=== PATIENT | male | born 1960 | race Caucasian/White ===

== ENCOUNTER 2023-12-11 13:06 | Emergency (ER) | payer MEDICARE, OTHER ==
[~2023-12-11] VITALS: Ht 177.8 cm; Wt 61.0 kg
[2023-12-11 13:42] VITALS: TEMP 98
[2023-12-11] MEDS ORDERED: DEXTROSE 50%-WATER 25 GM/50 ML SYRINGE IVP ONE (13:59)
[2023-12-11] MEDS: DEXTROSE 5%-0.45% SODIUM CHL 1,000 ML IV ONE (14:40)
[2023-12-11 14:43] LABS: BASOPHILS % (AUTO) 0.4 % (0.0-2.0); HEMOGLOBIN 15.8 g/dL (13.5-17.5); LYMPHOCYTES # (AUTO) 0.8 K/uL (1.0-4.8)
[2023-12-11 14:51] LABS: EOSINOPHILS % (AUTO) 0.4 % (1.0-6.0); HEMATOCRIT 47.5 % (41-53); LYMPHOCYTES % (AUTO) 7.9 % (22.0-44.0); MEAN CORPUSCULAR HGB CONC 33.2 G/dL (31.0-37.0); MEAN CORPUSCULAR VOLUME 105 fL (80-100); MONOCYTES # (AUTO) 0.4 K/uL (0.1-1.0); MONOCYTES % (AUTO) 3.8 % (2.0-9.0); NEUTROPHILS # (AUTO) 8.4 K/uL (1.8-7.7); PLATELET COUNT (AUTO) 164 K/uL (150-450); RED BLOOD CELL COUNT(AUTO) 4.51 MIL/uL (4.50-5.90); RED CELL DISTRIBUTION WIDTH 13.4 % (11.5-14.5); WHITE BLOOD COUNT (AUTO) 9.6 K/uL (4.5-11.0)
[2023-12-11 14:54] LABS: ANION GAP 18 mmol/L (8-16); CARBON DIOXIDE 17 mmol/L (22-29); CHLORIDE 99 mmol/L (98-107); GLOMERULAR FILTR. RATE CALC 48 mL/min (>60); GLUCOSE,RANDOM 204 mg/dL (70-110); POTASSIUM 3.4 mmol/L (3.5-5.1); SODIUM SERUM 134 mmol/L (136-145); UREA NITROGEN, BLOOD 23 mg/dL (7-18)
[2023-12-11 14:56] LABS: NEUTROPHILS % (AUTO) 87.5 % (40.0-70.0)
[2023-12-11 15:01] LABS: ALANINE AMINOTRANSFERASE 71 U/L (12-78); ALBUMIN 4.1 g/dL (3.4-5.0); ALKALINE PHOSPHATASE 109 U/L (46-116); ASPARTATE AMINOTRANSFERASE 46 U/L (15-37); BILIRUBIN,TOTAL 0.6 mg/dL (0.1-1.0); CREATINE KINASE, TOTAL ONLY 70 U/L (39-308); TOTAL PROTEIN, SERUM 7.6 g/dL (6.4-8.2)
[2023-12-11 15:02] LABS: AMMONIA 12 umol/L (11-32); TROPONIN I-HIGH SENSITIVITY 11 ng/L (<76)
[2023-12-11 15:05] LABS: LACTIC ACID 4.2 mmol/L (0.4-2.0)
[2023-12-11 15:16] LABS: RBC MORPHOLOGY COMMENT ABNORMAL RBC MORPH
[2023-12-11] MEDS: PIPERACILLIN/TAZO 3.375 GM/D5W 50 ML IV ONE (15:40)
[2023-12-11] MEDS: SODIUM CHLORIDE 0.9% 1,850 ML IV ONE (15:41)
[2023-12-11 15:50] LABS: APPEARANCE,URINE CLEAR (CLEAR); BILIRUBIN,URINE NEGATIVE (NEGATIVE); COLOR,URINE LIGHT YELLOW (YELLOW); GLUCOSE, URINE (UA) 70-100 mg/dL (NEGATIVE); LEUKOCYTE ESTERASE ,URINE NEGATIVE (NEGATIVE); NITRATE,URINE NEGATIVE (NEGATIVE); OCCULT BLOOD,URINE NEGATIVE (NEGATIVE); PH,URINE 5.5 (5.0-8.0); PH,URINE DRUG SCREEN 5.5 (5.0-8.0); PROTEIN,URINE 30-70 mg/dL (NEGATIVE); SPECIFIC GRAVITIY, URINE 1.012 (1.003-1.030); UROBILINOGEN,URINE <=1.0 mg/dL (<=1.0)
[2023-12-11 15:56] LABS: ALCOHOL, URINE DRUG SCREEN POSITIVE (NEGATIVE); AMPHET/METH SCREEN,URINE NEGATIVE (NEGATIVE); BARBITURATE SCREEN, URINE NEGATIVE (NEGATIVE); BENZODIAZEPINES SCREEN,URINE NEGATIVE (NEGATIVE); CANNABINOID SCREEN,URINE NEGATIVE (NEGATIVE); COCAINE SCREEN,URINE NEGATIVE (NEGATIVE); METHADONE SCREEN, URINE NEGATIVE (NEGATIVE); OPIATE SCREEN,URINE NEGATIVE (NEGATIVE); PHENCYCLIDINE SCREEN,URINE NEGATIVE (NEGATIVE)
[2023-12-11 16:00] LABS: BACTERIA,URINE None Seen /HPF (None Seen); RBC,URINE None Seen /HPF (0-2); WBC,URINE 0-2 /HPF (0-5)
[2023-12-11 16:56] LABS: INFLUENZA TYPE A NEGATIVE FOR TYPE A (NEGATIVE); INFLUENZA TYPE B NEGATIVE FOR TYPE B (NEGATIVE)
[2023-12-11 19:47] LABS: GLUCOMETER DEV NAME(LOC) ERT.5; GLUCOSE,POINT OF CARE 56 MG/DL (70-110)
[2023-12-11 19:47] LABS: GLUCOMETER DEV NAME(LOC) ERT.5; GLUCOSE,POINT OF CARE 108 MG/DL (70-110)
[2023-12-11 21:16] VITALS: BP 137/70; PULSE 90; RESP 16
== END 2023-12-11 21:19 | disposition home or self-care (01) ==
LOC: EMS 13:08
DX: F10.129 Alcohol abuse with intoxication, unspecified (principal); E11.9 Type 2 diabetes mellitus without complications; Y90.9 Presence of alcohol in blood, level not specified
CPT/HCPCS: 99285; 96365; 70450; 71045; 96367; 80053; 82140; 82550; 84484; 85025; 87040; 87804; 93005; 96368; 80307; 84145; 81001; 82962; 83605; 36415; J2543; J7030; G0480; 51702

== ENCOUNTER 2024-11-24 16:09 | Inpatient (IN) | payer MEDICARE, MEDICAID ==
[~2024-11-24] VITALS: Ht 165.1 cm; Wt 70.1 kg
[2024-11-24 16:58] LABS: BASOPHILS % (AUTO) 0.7 % (0.0-2.0); EOSINOPHILS % (AUTO) 4.9 % (1.0-6.0); HEMATOCRIT 40.3 % (41-53); HEMOGLOBIN 13.4 g/dL (13.5-17.5); LYMPHOCYTES % (AUTO) 16.2 % (22.0-44.0); MEAN CORPUSCULAR HEMOGLOBIN 33.5 pg (26.0-34.0); MEAN CORPUSCULAR HGB CONC 33.1 G/dL (31.0-37.0); MEAN CORPUSCULAR VOLUME 101 fL (80-100); MONOCYTES # (AUTO) 0.7 K/uL (0.1-1.0); MONOCYTES % (AUTO) 11.8 % (2.0-9.0); NEUTROPHILS # (AUTO) 4.1 K/uL (1.8-7.7); NEUTROPHILS % (AUTO) 66.4 % (40.0-70.0); PLATELET COUNT (AUTO) 113 K/uL (150-450); RED BLOOD CELL COUNT(AUTO) 3.98 MIL/uL (4.50-5.90); RED CELL DISTRIBUTION WIDTH 14.6 % (11.5-14.5); WHITE BLOOD COUNT (AUTO) 6.2 K/uL (4.5-11.0)
[2024-11-24 17:09] LABS: ANION GAP 13 mmol/L (8-16); CALCIUM, TOTAL 8.6 mg/dL (8.8-10.5); CARBON DIOXIDE 21 mmol/L (22-29); CHLORIDE 105 mmol/L (98-107); CREATININE 0.98 mg/dL (0.60-1.30); GLOMERULAR FILTR. RATE CALC > 60 mL/min (>60); GLUCOSE,RANDOM 114 mg/dL (70-110); POTASSIUM 3.3 mmol/L (3.5-5.1); SODIUM SERUM 139 mmol/L (136-145); UREA NITROGEN, BLOOD 6 mg/dL (7-18)
[2024-11-24 17:14] LABS: ALCOHOL, BLOOD (SERUM) 347 mg/dL (0-10)
[2024-11-24] MEDS: POTASSIUM CHLORIDE 20 MEQ ER TABLET PO ONE (18:20)
[2024-11-24 18:57] LABS: COVID AG,FIA SOURCE NASAL SWAB
[2024-11-24 19:15] LABS: SARS-COV2 (COVID) ANTIGEN,FIA Negative (Negative)
[2024-11-24] MEDS: LORazepam 2 MG TABLET PO PRN (22:40)
[2024-11-24] MEDS: HALOPERIDOL 5 MG TABLET PO PRN (22:40)
[2024-11-25] VITALS (10 sets, daily range): BP systolic 117–131; BP diastolic 70–84; PULSE 85–105; RESP 18–19; TEMP 97.5–98.8; O2SAT 95–100
[2024-11-25] MEDS ORDERED: INFLUENZA VIRUS VACCINE TVS (6MO+) 2024-25/PF 45 MCG/0.5 ML SYRINGE IM. ONE (02:45)
[2024-11-25] MEDS ORDERED: NICOTINE 14 MG/24 HOUR PATCH TD PRN (06:15)
[2024-11-25] MEDS ORDERED: GuaiFENesin/D-METHORPHAN [SUGAR-FREE] 200-20MG/10 ML SYRUP UDCUP PO PRN (06:15)
[2024-11-25] MEDS ORDERED: ONDANSETRON 4 MG TABLET PO PRN (06:15)
[2024-11-25] MEDS ORDERED: LOPERAMIDE HCL 2 MG CAPSULE PO PRN (06:15)
[2024-11-25] MEDS ORDERED: MAG HYDROX/ALUMINUM HYD/SIMETH ES 30 ML SUSPENSION UDCUP PO PRN (06:15)
[2024-11-25] MEDS ORDERED: PETROLATUM,WHITE 28 GM JELLY TP PRN (06:15)
[2024-11-25] MEDS ORDERED: DOCUSATE SODIUM 100 MG CAPSULE PO PRN (06:15)
[2024-11-25] MEDS ORDERED: ALBUTEROL SULFATE HFA 90 MCG/PUFF 8 GM INHALER IH PRN (06:15)
[2024-11-25] MEDS ORDERED: MAGNESIUM HYDROXIDE SUSPENSION 30 ML UDCUP PO PRN (06:15)
[2024-11-25] MEDS ORDERED: CloNIDine HCL 0.1 MG TABLET PO PRN (06:15)
[2024-11-25] MEDS: ChlordiazePOXIDE HCL 25 MG CAPSULE PO PRN (18:30)
[2024-11-25] MEDS: IBUPROFEN 400 MG TABLET PO PRN (18:31)
[2024-11-25] MEDS: OLANZapine 5 MG TABLET PO SCH (20:42)
[2024-11-26] VITALS (8 sets, daily range): BP systolic 109–131; BP diastolic 68–82; PULSE 78–96; RESP 17–18; TEMP 97.5–98.8; O2SAT 96–98
[2024-11-26] MEDS ORDERED: ChlordiazePOXIDE HCL 25 MG CAPSULE PO PRN (07:00)
[2024-11-26 07:26] LABS: PH,URINE DRUG SCREEN 6.5 (5.0-8.0)
[2024-11-26 07:38] LABS: ALCOHOL, URINE DRUG SCREEN NEGATIVE (NEGATIVE); AMPHET/METH SCREEN,URINE NEGATIVE (NEGATIVE); BARBITURATE SCREEN, URINE NEGATIVE (NEGATIVE); BENZODIAZEPINES SCREEN,URINE POSITIVE (NEGATIVE); CANNABINOID SCREEN,URINE NEGATIVE (NEGATIVE); COCAINE SCREEN,URINE NEGATIVE (NEGATIVE); METHADONE SCREEN, URINE NEGATIVE (NEGATIVE); OPIATE SCREEN,URINE NEGATIVE (NEGATIVE); PHENCYCLIDINE SCREEN,URINE NEGATIVE (NEGATIVE)
[2024-11-26 07:55] LABS: APPEARANCE,URINE HAZY (CLEAR); BILIRUBIN,URINE NEGATIVE (NEGATIVE); COLOR,URINE YELLOW (YELLOW); GLUCOSE, URINE (UA) NEGATIVE (NEGATIVE); KETONES,URINE NEGATIVE (NEGATIVE); LEUKOCYTE ESTERASE ,URINE MODERATE (NEGATIVE); NITRATE,URINE NEGATIVE (NEGATIVE); OCCULT BLOOD,URINE NEGATIVE (NEGATIVE); PROTEIN,URINE 30-70 mg/dL (NEGATIVE); SPECIFIC GRAVITIY, URINE 1.022 (1.003-1.030); UROBILINOGEN,URINE <=1.0 mg/dL (<=1.0)
[2024-11-26 08:12] LABS: BACTERIA,URINE Few /HPF (None Seen); RBC,URINE None Seen /HPF (0-2)
[2024-11-26 08:13] LABS: CALCIUM OXALATE CRYSTALS,UR Moderate /LPF (None Seen); SQUAMOUS EPITHELIAL CELL,UR Few /LPF (None Seen)
[2024-11-26] MEDS: BuPROPion HCL 150 MG SR TABLET PO SCH (08:20)
[2024-11-26] MEDS: ChlordiazePOXIDE HCL 25 MG CAPSULE PO SCH (08:24)
[2024-11-26 08:54] LABS: HEMOGLOBIN A1C 5.4 % (3.8-5.6)
[2024-11-26 09:34] LABS: CHOL/HDL RATIO 3.8 (4.2-7.3); THYROID STIMULATING HORMONE 0.72 uIU/mL (0.36-3.74)
[2024-11-26] MEDS: TraMADol HCL 50 MG TABLET PO ONE (21:11)
[2024-11-26] MEDS: ZOLPIDEM TARTRATE 10 MG TABLET PO PRN (23:27)
[2024-11-27] MEDS: CEPHALEXIN MONOHYDRATE 500 MG CAPSULE PO SCH (08:58)
[2024-11-27 10:37] VITALS: BP 116/71; PULSE 80; RESP 18; TEMP 99; O2SAT 95
[2024-11-27 21:24] VITALS: BP 113/65; PULSE 90; RESP 18; TEMP 98.6; O2SAT 95
[2024-11-28 01:13] VITALS: BP 120/61; PULSE 71; RESP 19; TEMP 98.9; O2SAT 98
[2024-11-28] MEDS: ChlordiazePOXIDE HCL 10 MG CAPSULE PO SCH (08:33)
[2024-11-28 08:34] VITALS: BP 121/84; PULSE 83; RESP 19; TEMP 97.2; O2SAT 100
[2024-11-28 09:34] VITALS: RESP 17; TEMP 98
[2024-11-28 10:21] VITALS: BP 121/84; PULSE 83; RESP 18; TEMP 97.2; O2SAT 100
[2024-11-28] MEDS: OLANZapine 7.5 MG TABLET PO SCH (21:18)
[2024-11-28 21:20] VITALS: BP 124/79; PULSE 86; RESP 18; TEMP 97.9; O2SAT 100
[2024-11-28 22:20] VITALS: RESP 18
[2024-11-29 04:00] VITALS: BP 138/94; PULSE 98; RESP 18; TEMP 98.8; O2SAT 96
[2024-11-29] MEDS: ChlordiazePOXIDE HCL 10 MG CAPSULE PO PRN ×2 (04:07→08:28)
[2024-11-29] MEDS: ACETAMINOPHEN 325 MG TABLET PO PRN (04:08)
[2024-11-29 09:19] VITALS: BP 106/65; PULSE 89; RESP 17; TEMP 98.3; O2SAT 97
[2024-11-29 09:23] VITALS: BP 106/65; PULSE 89; RESP 17; TEMP 98.3; O2SAT 97
[2024-11-29 17:41] VITALS: BP 116/74; PULSE 87; RESP 18; TEMP 97.3; O2SAT 98
[2024-11-29 22:01] VITALS: BP 134/73; PULSE 89; RESP 18; TEMP 98.1; O2SAT 97
[2024-11-30 03:40] VITALS: BP 134/81; PULSE 100; RESP 17; TEMP 97.5; O2SAT 98
[2024-11-30 11:12] VITALS: BP 136/84; PULSE 97; RESP 18; TEMP 97.8; O2SAT 95
[2024-11-30 11:30] VITALS: BP 129/85; PULSE 95; RESP 18; TEMP 98.2; O2SAT 99
[2024-11-30 12:49] VITALS: RESP 18
[2024-11-30] MEDS: DOXYCYCLINE HYCLATE 100 MG TABLET PO SCH (16:12)
[2024-11-30 20:19] VITALS: RESP 18
[2024-11-30 21:59] VITALS: BP 132/81; PULSE 87; RESP 18; TEMP 97.9
[2024-12-01 09:07] VITALS: BP 128/75; RESP 18
[2024-12-04] MEDS ORDERED: PANT-31 PO (11:28)
[2024-12-04] MEDS ORDERED: BUPR-433 PO (11:28)
== END 2024-12-01 15:23 | disposition short-term general hospital (02) | DRG 885 ==
LOC: EMS 16:09 → 3EI 11-25 00:30 → EMS 11-25 00:33 → 3EI 11-26 11:30
PROVIDERS: ADMIT Psychiatry & Neurology Child & Adolescent Psychiatry; ATTEND Psychiatry & Neurology Child & Adolescent Psychiatry
PROC: GZ56ZZZ Individual Psychotherapy, Supportive (ICD-10-PCS; 2024-11-25)
PROC: GZ52ZZZ Individual Psychotherapy, Cognitive (ICD-10-PCS; 2024-11-26)
PROC: GZHZZZZ Group Psychotherapy (ICD-10-PCS; principal; 2024-11-27)
DX: F20.0 Paranoid schizophrenia (principal); N39.0 Urinary tract infection, site not specified; R45.851 Suicidal ideations; E11.9 Type 2 diabetes mellitus without complications; F10.229 Alcohol dependence with intoxication, unspecified; Z20.822 Contact with and (suspected) exposure to COVID-19; D64.9 Anemia, unspecified; E87.6 Hypokalemia; F17.210 Nicotine dependence, cigarettes, uncomplicated; F32.A Depression, unspecified; F41.9 Anxiety disorder, unspecified; G47.00 Insomnia, unspecified; S00.81XA Abrasion of other part of head, initial encounter; X58.XXXA Exposure to other specified factors, initial encounter; Y93.89 Activity, other specified; Y92.89 Other specified places as the place of occurrence of the external cause; Y99.8 Other external cause status; Z88.2 Allergy status to sulfonamides; Z88.3 Allergy status to other anti-infective agents; Z21 Asymptomatic human immunodeficiency virus [HIV] infection status
CPT/HCPCS: 70450; 72125; 74176; 76700; 80048; 80061; 80307; 81001; 83036; 84132; 84443; 85025; 87077; 87081; 87086; 87186; 99285; G0480